=== PATIENT | male | born 1990 | race African-American/Black ===

== ENCOUNTER 2019-01-11 06:47 | Emergency (ER) | payer OTHER ==
[~2019-01-11] VITALS: Ht 172.7 cm; Wt 69.6 kg
[2019-01-11 06:54] VITALS: BP 118/73; Ht 172.7 cm; Wt 69.6 kg
== END 2019-01-11 08:28 | disposition home or self-care (01) ==
LOC: ED 06:47
DX: N39.0 Urinary tract infection, site not specified (principal)
CPT/HCPCS: 87491; 87591; J0696